=== PATIENT | female | born 1960 | race Caucasian/White ===

== ENCOUNTER 2017-08-31 05:06 | Emergency (ER) | payer SELFPAY ==
[~2017-08-31] VITALS: Ht 157.5 cm; Wt 44.0 kg
[~2017-08-31 05:06] MED LIST: ALPRAZOLAM0.25 MG PO; CELEXA20 MG PO; EFFEXOR37.5 MG PO; FLEXERIL10 MG PO; LISINOPRIL20 MG PO; MOTRIN800 MG PO; NO HOME MEDS
[2017-08-31] MEDS ORDERED: AZITHROMYCIN250 MG PO (05:57)
[2017-08-31] MEDS ORDERED: SUDAFED PE PRE1 EAC1 PO (05:57)
[2017-08-31] MEDS ORDERED: AFRIN,GENASAL D15 ML BOTH NARES (05:57)
[2017-08-31 06:10] VITALS: BP 129/93
== END 2017-08-31 06:13 | disposition home or self-care (01) ==
LOC: EME 05:06
DX: J32.9 Chronic sinusitis, unspecified (principal); H66.93 Otitis media, unspecified, bilateral; J02.9 Acute pharyngitis, unspecified; M79.1 Myalgia; I10 Essential (primary) hypertension; F17.200 Nicotine dependence, unspecified, uncomplicated
CPT/HCPCS: 99281; 99284